=== PATIENT | female | born 2005 ===

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

== ENCOUNTER 2025-01-08 | Outpatient (REF) | payer MEDICAID, SELFPAY ==
[2025-01-09 13:49] LABS: Bacterial Vaginosis PCR NEGATIVE (Negative); Candida Group PCR NOT DETECTED (Not Detect); Candida glab krusei PCR NOT DETECTED (Not Detect); Trichomonas vaginalis PCR NOT DETECTED (Not Detect)
[2025-01-09 14:19] LABS: CT PCR NOT DETECTED (Not Detect.); NG PCR NOT DETECTED (Not Detect.)
--- OUTSIDE RECORDS SUMMARY | 2025-01-09 14:54 | XMS_ITS | Encounter Summary ---
Author Organization [employer] Address [address] [facility] 7 [place] [address] Care Team Providers Care Farm Loan Representative Name Role Phone Elizabeth Trejo DO Primary Care Provider [phone] Reason for Visit * Reason Onset Date Comments Medication Question 11/12/2024 Encounter Details Date Type Department Care Team ([facility] st Contact Info) Description 11/12/2024 Telephone [facility] [address] [place] [address] Elizabeth Trejo DO [address] [place], [place] [phone] Medication Question Social History Tobacco Use Types [...] encounter Miscellaneous Notes * Telephone Encounter - aRdha Bernardo CNM - 11/12/2024 2:07 PM EST [facility] message sent to patient. * Telephone Encounter [...] documented as of this encounter Care Teams Farm Loan Representative Relationship Specialty Start Date End Date Elizabeth Trejo DO [address] [place] [address] PCP - General Family Medicine 09/23/24 documented as of this encounter
--- OUTSIDE RECORDS SUMMARY | 2025-01-09 14:54 | XMS_ITS | Encounter Summary ---
Author Organization [employer] Address [address] [place] [address] 7 [place] [address] Care Team Providers Care Traffic Coordinator Name Role Phone Malka Dee MD Primary Care Provider [phone] Danuta Barnard MD Primary Care Provide r Elizabeth Trejo DO Primary Care Provider [phone] Reason for Visit * Reason Onset Date Comments Med Refill 02/07/2024 Encounter Details Date Type Department Care Team (Late st Contact Info) Description 02/07/2024 Refill [facility] [address] [place], [place] [phone] Malka Dee MD [address] [place], [place] [phone] Social History Tobacco Use Types Packs/Day Years [...] on filedocumented in this encounter Care Teams Traffic Coordinator Relationship Specialty Start Date End Date Malka Dee MD [address] [place] [address] PCP - General Pediatrics 10/30/18 09/11/24 Danuta Barnard MD [address] [place] [address] PCP - General Internal Medicine 09/12/24 09/22/24 Elizabeth Trejo DO [address] [place] [address] PCP - General Family Medicine 09/23/24 documented as of this encounter
--- OUTSIDE RECORDS SUMMARY | 2025-01-09 14:54 | XMS_ITS | Encounter Summary ---
Author Organization [employer] Address [address] [facility] 7 [place] [address] Care Team Providers Care Funeral Car Chauffeur Name Role Phone Elizabeth Trejo DO Primary Care Provider [phone] Reason for Visit * Reason Onset Date Comments Nurse Triage 01/01/2025 Encounter Details Date Type Department Care Team (Late st Contact Info) Description 01/01/2025 Telephone [facility] [address] [place] [address] Elizabeth Trejo DO [address] [place], [place] [phone] Nurse Triage Social History Tobacco Use Types [...] Telephone Encounter - Meenu Jules RN - 01/01/2025 4:32 PM EST Images from the original note were not included. Call returned to [facility] to triage below. Reports having SE of nausea since starting BC Ocp. Pt reports having worsening depression symptoms. Pt denies any SI/HI. Pt reports feeling safe in home. Pt confirms having services with our [facility] team. Pt states does not believe wants to usealt method (iUD, Implanon or DEPO). Pt advised can stop BC but if wishes to prevent should use alt method of male/female condoms, abstinence or pull out method. Pt states would like PCP follow up. Given appt on Monday for follow up. Reviewed [facility] operating hours and that wait times vary. Reviewed home care advise, ER precautions and reasons to call back. Multiple (2) protocols were used on this call. Disposition for Call: Callback or Video Visit by PCP Today Future Appointments Date Time Provider Department Center 01/06/2025 10:00 AM Pérez Ruggiero [facility] 01/06/2025 11:45 AM DO [facility] Insurance verified as active per Real Time Eligibility in [facility]. Protocol Used: Nausea (Adult) Protocol-Based Disposition: Callback or Video Visit by PCP Today Video visit offer not recorded Positive Triage Question: * Taking prescription medication that could cause nausea (e.g., narcotics/opiates, antibiotics, OCPs, many others) * All higher-acuity triage questions were negative Care Advice Discussed: * Reassurance and Education - Nausea * Clear Fluids * Solid Foods * Reasons To Call Back - Nausea lasts over 1 week - You become worse Protocol Used: Contraception - Control Pills - Combined (Adult) Protocol-Based Disposition: See in Office or Video Visit within 3 Days Video visit offer not recorded Positive Triage Question: * Patient wants to be seen * All higher-acuity triage questions were negative Care Advice Discussed: * Combined Control Pills (BCPs) - Side Effects * Reasons To Call Back - You become worse FW: control Received: Today Meenu Jules RN P [facility] T[facility] Nurse Previous Messages control (Newest Message First) View All Conversations on this Encounter You routed conversation to [facility] Triage Nurse52 minutes ago (3:37 PM) Tosha Mason [facility] Clinical Support (supporting Radha Bernardo CNM)2 hours ago (1:51 PM) YV I???m Tosha Carreon I would like to stop my control pill. It???s been a month and a half Gomez feel nauseous every single day. I did take a test to make sure I???m not and it came out negative. I also feel depressed everyday and it???s making it worse. I did try the patch before and it didn???t work either. I would like to stop control altogether. Is it possible for me to stop it today? documented in this encounter Plan of Treatment Not on file documented as of this encounter Visit Diagnoses Not on filedocumented in this encounter Additional Health Concerns Assessment Noted Time PHQ-9 Depression Total Score: 18 024 11:41 AM EST documented as of this encounter Care Teams Funeral Car Chauffeur Relationship Specialty Start Date End Date Elizabeth Trejo DO [address] [place] [address] PCP - General Family Medicine 09/23/24 documented as of this encounter
--- OUTSIDE RECORDS SUMMARY | 2025-01-09 14:54 | XMS_ITS | Clinical Summary ---
Author Organization [employer] Address [address] [facility] 7 [place] [address] Care Team Providers Care Order Takers Supervisor Name Role Phone Elizabeth Trejo DO Primary Care Provider + [phone] Allergies No known active allergies Medications * This document contains information received from the source organization and may not represent a complete record from that organization. hydrOXYzine pamoate (Vistaril) 25 MG capsule Take 1 capsule (25 mg) by mouth every 6 (six) hours if needed for anxiety for up to 10 days. 30 capsule 09/23/2024 Active norgestimate-et hinyl estradiol (Ortho Tri-Cyclen,Kristin essa) 0.18/0.215/0.25 MG-35 MCG tablet Take 1 tablet by mouth Once per day. 28 tablet 11 11/25/2024 Active Active Problems Problem Noted Date Diagnosed Date Anxiety 12/10/2024 Vaginal symptom 12/09/2024 Depressive disorder 11/30/2023 11/30/2023 Assessment & Plan (12/10/2024 8:03 AM EST): >>ASSESSMENT AND PLAN FOR PERSISTENT DEPRESSIVE DISORDER WRITTEN ON 09/24/2024 1:38 PM BY ELSY CANTRELL During IB Consult Tosha presenting with depressed mood, Tearful, crying spells [...] using open-ended questions. Pt was self-referred to [facility]. She completed the intake forms after today's appt and will be giving an appt within the next two days. clinician will provide additional support if needed during next medical appointments. Encounters * This document contains information received from the source organization and may not represent a complete record from that organization. Date Type Department Care Team Description 01/08/2025 7:20 PM EDT Office Visit [facility] [address] [address] Jocelyne Alfaro FNP Vaginosis (Primary Dx); UTI symptoms 01/08/2025 Travel 01/01/[address] [address] Elizabeth Trejo DO Nurse Triage 12/09/2024 2:45 PM EST Office Visit [address] [address] Charlotte Herrera MD Vaginal symptom (Primary Dx); Persistent depressive disorder 12/09/2024 Travel 12/09/[address] [address] Elizabeth Trejo DO Nurse Triage 12/04/2024 6:00 PM EST Office Visit [facility] [address] [phone] Trixie Hagan FNP Vaginal symptom (Primary Dx) 12/04/[address] [address] Elizabeth Trejo DO Nurse Triage 11/25/2024 10:00 AM EST Office [address] [place] [address] Radha Bernardo CNM Hair loss (Primary Dx); Family planning counseling 11/25/2024 Travel 11/12/[address] [address] Elizabeth Trejo DO Medication Question 11/12/2024 Orders Only [address] [address] Radha Bernardo CNM 11/11/2024 1:45 PM EST Office Visit [address] [address] Radha Bernardo CNM Candidiasis of vulva and vagina (Primary Dx) 11/11/2024 Travel 11/07/[address] [address] Elizabeth Trejo DO Nurse Triage 10/25/[address] [address] Elizabeth Trejo DO Nurse Triage from Last 3 Months Immunizations [...] Sign Reading Time Taken Comments Blood Pressure 120/76 01/08/2025 7:17 PM EDT Pulse 102 01/08/2025 7:17 PM EDT Temperature 36 ??C (96.8 ??F) 12/09/2024 2:25 PM EST Respiratory Rate 20 01/08/2025 7:17 PM EDT Oxygen Saturation 100% 01/08/2025 7:17 PM EDT Inhaled Oxygen Concentration - - Weight 59.8 kg (131 lb 12.8 oz) 01/08/2025 7:17 PM EDT Height 161.3 cm (5' 3.5 ) 01/08/2025 7:17 PM EDT Body Mass Index 22.98 01/08/2025 7:17 PM EDT Plan of Treatment Health Maintenance Due Date Last Done Comments HIV Screening 2005 Fluoride Varnish 02/26/2006 Alcohol/Substance Use Screening 2017 Hepatitis C Screening 2023 COVID-19 Vaccine ( season) 2024 Influenza Vaccine (#1) 2024 Depression Monitoring (PHQ-9) 03/23/2025 09/23/2024, 09/23/2024 Depression Screening 09/23/2025 09/23/2024, 09/23/20 24 SDOH Screening 09/23/2025 09/23/2024 Family Planning (PISQ) 11/25/2025 11/25/2024 Tobacco Screening 12/09/2025 12/09/2024 Chlamydia and Gonorrhea Screening 01/08/2026 01/08/2025, 12/09/2024, 12/04/2024, Additional history exists DTaP/Tdap/Td Vaccines (7 - Td or Tdap) [...] Procedure Name Priority Date/Time Associated Diagnosis Comments CHLAMYDIA/N. GONORRHOEAE RNA, TMA, UROGENITAL Routine 01/08/2025 7:52 PM EDT Vaginosis BACTERIAL VAGINOSIS PANEL Routine 01/08/2025 7:52 PM EDT Vaginosis POCT URINALYSIS DIPSTICK Routine 01/08/2025 7:25 PM EDT UTI symptoms CHLAMYDIA/N. GONORRHOEAE RNA, TMA, UROGENITAL Routine 12/09/2024 3:55 PM EST Vaginal symptom BACTERIAL VAGINOSIS PANEL Routine 12/09/2024 3:55 PM EST Vaginal symptom POCT URINALYSIS DIPSTICK Routine 12/09/2024 2:52 PM [...] vagina from Last 3 Months Results * Bacterial Vaginosis Panel (01/08/2025 7:52 PM EDT) Only the most recent of4 resultswithin the time period is included. TRICHOMONAS VAGINALIS DETECTION BY PCR NOT DETECTED Not Detect [facility] BACTERIAL VAGINOSIS DETECTION BY PCR NEGATIVE Negative [facility] Comment:The BV organism targ ets [...] DETECTION BY PCR NOT DETECTED Not Detect [facility] Karin glab krusei PCR NOT DETECTED Not Detect [facility] Swab Vaginal structure / Unknown 01/08/2025 7:52 PM EDT 01/09/2025 11:32 AM EDT Jocelyne Alfaro [facility] MICROBIOLOGY - GENERAL MARLO PRADO Final Result [facility] [address] [place] [address] [phone] * Chlamydia/N. Gonorrhoeae RNA, TMA, Urogenitial (01/08/2025 7:52 PM EDT) Only the most recent of3 resultswithin the time period is included. CT PCR NOT DETECTED Not Detect. [facility] Comment:A not detected test result [...] psychologicalconsequences. NG PCR NOT DETECTED Not Detect. [facility] Comment:A not detected test result [...] to adverse medical, social or psychologicalconsequences. Swab Vaginal structure / Unknown 01/08/2025 7:52 PM EDT 01/09/2025 11:32 AM EDT Narrative [facility] - 01/09/2025 2:19 PM EDT Vaginal us Jocelyne [facility] MICROBIOLOGY - GENERAL MARLO PRADO Final Result [facility] [address] [place] [phone] * POCT Urinalysis (01/08/2025 7:25 PM EDT) Only the most recent of3 resultswithin the time period is included. Color, UA Yellow Clarity, UA Clear Glucose, UA Negative Bilirubin, UA Negative Ketones, UA Positive Comment:Trace Spec Grav, UA 1.025 Blood, UA Negative Negative, None Detected pH, UA 7.5 Protein, UA Negative Urobilinogen, UA 1.0 Leukocytes, UA Negative Negative, Rare, Trace Nitrite, UA Negative Negative, None Detected Appearance, UA yellow QC Media Lot # [id number] Lot# Expiration Date Urine 01/08/2025 7:25 PM EDT Jocelyne Alfaro [facility] POINT OF CARE TEST ENTER/EDIT O RDERABLES Final Result * POCT Urine (12/04/2024 6:48 PM EST) Preg Test, Ur Negative Negative, Indeterminate, None Detected, Invalid, Specimen unsatisfactory for evaluation, Weakly Positive QC Media Lot # [id number] Lot# Expiration Date , Urine 12/04/2024 6:48 PM EST Trixie Yiselsergio [facility] POINT OF CARE TEST ENTER/EDIT ORDERABLES Final Result * POCT fern test, vaginal fluid manually resulted (11/11/2024 2:11 PM EST) [facility] Prep Positive Comment:pH 4.5, pos hyphae, neg trich, neg clue, neg wbc, neg whiff Vaginal Fluid Vaginal structure / Unknown 11/11/2024 2:11 PM EST Impressions Radha Bernardo CNM - 11/11/2024 2:11 PM EST Vulvovaginal candidiasis Radha Bernardo [facility] POINT OF CARE TEST ENTER/ EDIT ORDERABLES Final Result from Last 3 Months Insurance [facility] C3 Care Teams Order Takers Supervisor Relationship Specialty Start Date End Date Elizabeth Trejo DO [address] [place] [address] PCP - General Family Medicine 09/23/24
--- OUTSIDE RECORDS SUMMARY | 2025-01-09 14:54 | XMS_ITS | Encounter Summary ---
Author Organization [employer] Address [address] [facility] 7t [place] [address] Care Team Providers Care Scientific Director Name Role Phone Malka Dee MD Primary Care Provider [phone] Danuta Barnard MD Primary Care Provide r Elizabeth Trejo DO Primary Care Provider [phone] Reason for Visit * Reason Onset Date Comments Appointment Request 11/14/2023 Encounter Details Date Type Department Care Team (Late st Contact Info) Description 11/14/2023 Telephone [facility] [address] [place], [place] [phone] Malka Dee MD [address] [place], [place] [phone] Appointment Request Social History Tobacco Use Types Packs/Day Years Used Date Smoking Tobacco: Never Assessed Comments Unknown Sex and Gender Information Value Date Recorded Sex Assigned at Female 08/29/2022 10:33 AM EDT Legal Sex Female 10:33 AM EDT Gender Identity Female 11/30/2023 11:11 AM EST Sexual Orientation Straight 11/08/2024 8: 55 AM EST documented as of this encounter Miscellaneous Notes * Telephone Encounter - Katrin Santos RN - 11/14/2023 2:38 PM EST T/C to pt. Through [employer] id - [id number] for below message, Pt. Schedule for follow up apt. For referral for PAP smear and information about control. Pt. Verbally agreed and understood. * Telephone Encounter - Mckenna Cooney - 11/14/2023 11:52 AM EST Tc from mom requesting a referral for PAP Smear and information about control. documented in this encounter Plan of Treatment Not on file documented as of this encounter Visit Diagnoses Not on filedocumented in this encounter Care Teams Scientific Director Relationship Specialty Start Date End Date Malka Dee MD [address] [place] [phone] PCP - General Pediatrics 10/30/18 09/11/24 Danuta Barnard MD [address] [place] [phone] PCP - General Internal Medicine 09/12/24 09/22/24 Elizabeth Trejo DO [address] [place] [phone] PCP - General Family Medicine 09/23/24 documented as of this encounter
--- OUTSIDE RECORDS SUMMARY | 2025-01-09 14:54 | XMS_ITS | Encounter Summary ---
Author Organization [employer] Address [address] [facility] [address] 7[address] [place] [address] Care Team Providers Care Battery Vent Plug Inserter Name Role Phone Elizabeth Trejo DO Primary Care Provider [phone] Encounter Details Date Type Department Care Team (Latest Contact Info) Description 01/08/2025 Travel Social History Tobacco Use Types Packs/Day [...] documented as of this encounter Care Teams Battery Vent Plug Inserter Relationship Specialty Start Date End Date Elizabeth Trejo DO [address] [place] [phone] PCP - General Family Medicine 09/23/24 documented as of this encounter
--- OUTSIDE RECORDS SUMMARY | 2025-01-09 14:54 | XMS_ITS | Encounter Summary ---
Author Organization [employer] Address [address] [facility] 7t [place] [address] Care Team Providers Care Bindery Manager Name Role Phone GailElizabeth beasley Primary Care Provider [phone] Reason for Visit * Reason Comments Walk-In STI symptoms 2 days; pt did try using an itching cream and feels like it agitated her skin, only inside is itchy at the moment Encounter Details Date Type Department Care Team (Late st Contact Info) Description 01/08/2025 7:20 PM EDT Office Visit [facility] [address] [place], [place] [phone] Jocelyne Alfaro FNP [address] [place] [address] Vaginosis (Primary Dx); UTI symptoms Social History Tobacco Use Types Packs/Day Years [...] Pulse 102 01/08/2025 7:17 PM EDT Temperature - - Respiratory Rate 20 01/08/2025 7:17 PM EDT Oxygen Saturation 100% 01/08/2025 7:17 PM EDT Inhaled Oxygen Concentration - - Weight 59.8 kg (131 lb 12.8 oz) 01/08/2025 7:17 PM EDT Height 161.3 cm (5' 3.5 ) 01/08/2025 7:17 PM EDT Body Mass Index 22.98 01/08/2025 7:17 PM EDT documented in this encounter Progress Notes * SHAYLEE Day - 01/08/2025 7:20 PM EDT Subjective Patient ID: Tosha Ingram is a 19 y.o. female who presents for Walk-In (STI symptoms 2 days). Tosha here today with concerns of recurrent vaginal infections. She reports 2 days of malodorous vaginal discharge, yellow in color, itching and vaginal irritation. She used an OTC cream (unable to recall name) which helped with the itch but discharge continues. She was previously treated for BV in 11/11 24 with metrogel with resolution of symptoms after completion of medication. 12/04/2024 she was seen in [facility] for vaginal itching and mild discharge. BV, trichomonas, nazario, chlamydia and gonorrhea were negative at that time. 12/09/2024 was seen for itching, burning with urination and irritation after intercourse with her boyfriend x 1 week. Yarisbeth denies dyspareunia, bleeding with sex or bleeding in between periods. Denies urinary frequency, fever, nausea, vomiting, or CVA tenderness. No new partner, she is in a mutually exclusive relationship. Vaginal Discharge Quality: Malodorous and yellow Onset quality: Sudden Duration: 2 days Progression: Worsening Associated symptoms: vaginal itching Associated symptoms: no abdominal pain, no fever, no nausea, no rash, no urinary incontinence and no vomiting Risk factors: no new sexual partner Review of Systems Constitutional: Negative for appetite change, fatigue and fever. HENT: Negative for ear pain, rhinorrhea and sore throat. Eyes: Negative for discharge. Respiratory: Negative for cough and shortness of breath. Cardiovascular: Negative for chest pain. Gastrointestinal: Negative for abdominal pain, constipation, diarrhea, nausea and vomiting. Genitourinary: Positive for vaginal discharge. Negative for bladder incontinence and difficulty urinating. Musculoskeletal: Negative for arthralgias and myalgias. Skin: Negative for rash and wound. Neurological: Negative for headaches. Hematological: Negative for adenopathy. Objective BP 120/76 (BP Location: Left arm, Patient Position: Sitting, BP Cuff Size: Adult) Pulse 102 Resp 20 Ht 5' 3.5 (1.613 m) Wt 131 lb 12.8 oz (59.8 kg) SpO2 100% BMI 22.98 kg/m?? Physical Exam Constitutional: Appearance: Normal appearance. HENT: Head: Normocephalic. Right Ear: External ear normal. Left Ear: External ear normal. Nose: Nose normal. Mouth/Throat: Mouth: Mucous membranes are moist. Eyes: Conjunctiva/sclera: Conjunctivae normal. Cardiovascular: Rate and Rhythm: Normal rate and regular rhythm. Heart sounds: Normal heart sounds. Pulmonary: Effort: Pulmonary effort is normal. Breath sounds: Normal breath sounds. Musculoskeletal: General: Normal range of motion. Cervical back: Normal range of motion and neck supple. Skin: General: Skin is warm and dry. Capillary Refill: Capillary refill takes less than 2 seconds. Neurological: Mental Status: She is alert and oriented to person, place, and time. Psychiatric: Mood and Affect: Mood normal. Behavior: Behavior normal. Thought Content: Thought content normal. Judgment: Judgment normal. Assessment/Plan Diagnoses and all orders for this visit: Vaginosis Vaginal hygiene reviewed. Avoid scented/perfumed products. Wash vulva with water only BV panel and STI testing pending Plan based on results RTC if sx persist or worsen Refer to for pelvic exam due to recurrent infections - Bacterial Vaginosis Panel - Chlamydia/N. Gonorrhoeae RNA, TMA, Urogenitial UTI symptoms - POCT Urinalysis Urine analysis and culture Urine sample with trace ketones, no leuk or nitrites Increase fluids RTC if sx worsen or persist documented in this encounter Plan of Treatment Not on file documented as of this encounter Procedures Procedure Name Priority Date/Time Associated Diagnosis Comments BACTERIAL VAGINOSIS PANEL Routine 01/08/2025 7:52 PM EDT Vaginosis CHLAMYDIA/N. GONORRHOEAE RNA, TMA, UROGENITAL Routine 01/08/2025 7:52 PM EDT Vaginosis POCT URINALYSIS DIPSTICK Routine 01/08/2025 7:25 PM EDT UTI symptoms documented in this encounter Results * Chlamydia/N. Gonorrhoeae RNA, TMA, Urogenitial (01/08/2025 7:52 PM EDT) CT PCR NOT DETECTED Not Detect. [facility] Comment:A not detected test result does [...] psychologicalconsequences. NG PCR NOT DETECTED Not Detect. [facility] Comment:A not detected test result does [...] PM EDT 01/09/2025 11:32 AM EDT Narrative [facility] - 01/09/2025 2:19 PM EDT Vaginal Jocelyne JUNE LAB MICROBIOLOGY - GENERAL MARLO PRADO Final Result [facility] [address] [place] [phone] * Bacterial Vaginosis Panel (01/08/2025 7:52 PM EDT) TRICHOMONAS VAGINALIS DETECTION BY PCR NOT DETECTED Not Detect [facility] BACTERIAL VAGINOSIS DETECTION BY PCR NEGATIVE Negative [facility] Comment:The BV organism targ ets [...] evaluatedin patients under the age of 14. NAZARIO GROUP DETECTION BY PCR NOT DETECTED Not Detect [facility] Nazario glab krusei PCR NOT DETECTED Not Detect [facility] Swab Vaginal structure / Unknown 01/08/2025 7:52 PM EDT 01/09/2025 11:32 AM EDT [facility] Final Result [facility] [address] [place] [phone] * POCT Urinalysis (01/08/2025 7:25 PM EDT) Color, UA Yellow Clarity, UA Clear Glucose, UA Negative Bilirubin, UA Negative Ketones, UA Positive Comment:Trace Spec Grav, UA 1.025 Blood, UA Negative Negative, None Detected pH, UA 7.5 Protein, UA Negative Urobilinogen, UA 1.0 Leukocytes, UA Negative Negative, Rare, Trace Nitrite, UA Negative Negative, None Detected Appearance, UA yellow QC Media Lot # [id number] Lot# Expiration Date Urine 01/08/2025 7:25 PM EDT [employer] INCIDENT MANAGER POINT OF CARE TEST ENTER/EDIT O RDERABLES Final Result documented in this encounter Visit Diagnoses Diagnosis Vaginosis- Primary UTI symptoms documented in this encounter Additional Health Concerns Assessment Noted Time PHQ-9 Depression Total Score: 18 024 11:41 AM EST documented as of this encounter Care Teams Bindery Manager Relationship Specialty Start Date End Date Elizabeth Trejo DO [address] [place] [phone] PCP - General Family Medicine 09/23/24 documented as of this encounter
== END 2025-01-08 00:01 | disposition home or self-care (01) ==
LOC: HO.HHCLNP
PROVIDERS: Visit Provider Nurse Practitioner Family
DX: N76.0 Acute vaginitis (principal)
CPT/HCPCS: 81515; 87491; 87591

== ENCOUNTER 2025-02-14 12:19 | Emergency (ER) | payer OTHER, MEDICAID, SELFPAY ==
--- NOTE | ~2025-02-14 | CT_ITS ---
EXAMINATION: CT HEAD WITHOUT CONTRAST CLINICAL INFORMATION: Posterior head strike, dizziness COMPARISON: None available. TECHNIQUE: Contiguous axial imaging was performed from the skull base to vertex without intravenous administration of contrast. This CT examination was performed using dose optimization techniques as appropriate, variously including the following: *Automated exposure control *Adjustment of mA and/or kV according to patient size (this includes techniques or standardized protocols for targeted exams where dose is matched to indication/reason for exam; i.e. extremities or head) *Use of iterative reconstruction technique DLP: 669.88 mGy-cm FINDINGS: The bony calvarium is intact. No acute intracranial hemorrhage, mass effect, midline shift, hydrocephalus or herniation. [place]-white matter differentiation is normal. Sellar/suprasellar region demonstrated no gross masses. Craniocervical junction is intact and normal. No air-fluid levels in the included paranasal sinuses. Tympanic cavities and mastoid cells are aerated. Pneumatized left petrous apex. CT/CT head/brain wo IV con IMPRESSION: No acute fracture, bony calvarium. No acute intracranial hemorrhage. Electronically signed by: Kvng Manjarrez MD 02/14/2025 02:29 PM EDT
--- NOTE | ~2025-02-14 | CT_ITS ---
EXAMINATION: CT CERVICAL SPINE WITHOUT CONTRAST CLINICAL INFORMATION: Head injury. COMPARISON: None available. TECHNIQUE: Contiguous axial images through the cervical spine using 3 mm collimation with bone and soft tissue algorithm. Sagittal and coronal reformatted images acquired. This CT examination was performed using dose optimization techniques as appropriate, variously including the following: *Automated exposure control *Adjustment of mA and/or kV according to patient size (this includes techniques or standardized protocols for targeted exams where dose is matched to indication/reason for exam; i.e. extremities or head) *Use of iterative reconstruction technique DLP: 295.08 mGy centimeter. FINDINGS: Craniocervical junction is intact. No gross malalignment between the vertebral bodies or the facet joints. C1 is intact. C2 is intact. C3 is intact. C4 is intact. C5 is intact. C6 is intact. C7 is intact. No gross prevertebral compartment hematoma. Tympanic cavities and mastoid cells are aerated. CT/CT cervical spine wo IV con IMPRESSION: No acute fracture or trauma-related listhesis. Fleischner guidelines were followed. Electronically signed by: Kvng Manjarrez MD 02/14/2025 02:26 PM EDT
[2025-02-14 12:23] VITALS: BP 138/87; PULSE 123; RESP 18; TEMP 37.1; O2SAT 100; BMI 22.4
--- NOTE | 2025-02-14 12:25 | ED_ITS ---
HPI - Head Injury General Chief complaint: Head Injury Stated complaint: Hit Head 3 Days Ago Nausea Headache Etc Time Seen by Provider: 02/14/25 13:12 Source: patient Mode of arrival: ambulatory Limitations: no limitations History of Present Illness ED Provider: Malgorzata Tirado NP HPI Narrative: Patient is a 19-year-old female who presents emergency department for evaluation after sustaining a head injury at work; [email or web address] on 02/10/2025. She states that she was underneath a rack she stood upwards and struck the back of her head into the rack. She denies loss of consciousness, use of anticoagulants or known coagulation disorders. She does not having any pain initially. The following day she began experiencing a posterior headache, photophobia and phonophobia, nausea but no vomiting, intermittent dizziness, diffuse posterior neck pain as well. She has not taken any at home. Given her persistent symptoms she decided to seek evaluation today. Denies vision changes, neck stiffness, chest pain, shortness of breath, numbness or tingling of the extremities, bladder bowel dysfunction. Related Data Previous Rx's ?Medication ?Instructions ?Recorded norgestimate 0.18 mg/0.215mg/0.25 1 tab PO DAILY #84 tabs 05/07/24 mg-ethinyl estradiol 0.025 mg tablet Allergies Allergy/AdvReac Type Severity Reaction Status Date / Time No Known Allergies Allergy Verified 02/14/25 12:25 [No Known Allergies*] Review of Systems Review of Systems: Yes all other systems are reviewed and are negative PMFSH Past Medical History Attestation statement: The following information was validated with the patient. Source: old records reviewed Social History Social History Advance Directives: No Advance Directives Information Provided: No Do you have a plan to hurt others: No Plan Physical Exam Vital Signs: Vital Signs: Last Vital Signs Temp 98.7 F 02/14/25 12:23 Pulse 123 H 02/14/25 12:23 Resp 18 02/14/25 12:23 BP 138/87 02/14/25 12:23 Pulse Ox 100 02/14/25 12:23 O2 Del Method Room Air 02/14/25 12:23 BMI result Body Mass Index 22.4 Appearance: Alert.?Oriented to person, place and time. No acute distress.?Normal affect. Head: Normocephalic Eyes: Pupils equal, round and reactive to light. EOMI. Conjunctiva and sclera normal? No Romero sign noted. No raccoon eyes noted ENT: No septal hematoma, nares patent bilaterally. External auditory canal normal tympanic membrane pearly jenkins and intact bilaterally. Dentition normal, no fractured teeth. No lesions or lacerations of oropharynx. Uvula midline. Moist mucous membranes. Neck: Normal inspection.? Neck supple.??No palpable tenderness, step-off, deformities. CVS: Heart sounds normal. Normal heart rate and rhythm.? Pulses normal.?? Respiratory: No respiratory distress.? Lung sounds clear to auscultation bilaterally?? Abdomen: Soft and non-tender. Normoactive bowel sounds. ?? Skin: Skin warm and dry.? Normal skin color.? Normal skin turgor.?? Extremities: No lower extremity edema.? Neuro: Moves all extremities spontaneously. Sensation intact bilaterally. CN II- XII intact. No focal neuro deficits. Ambulatory with steady gait. Course Course Course Narrative: This is a Rapid Medical Examination (RME) performed by Yahaira Webber PA-C in triage. Full HPI, ROS, assessment and treatment plan per primary provider in the Main ED. 02/14/25 1225 [place] Francois Hx: here w/ photophobia, nausea without vomiting, dizziness, headache, neck pain since head strike on metal 3 days ago while at work. states she was bending over to grab something, stood up abruptly and struck the back of her head on a metal shelf. the following day began experiencing the above symptoms. No sals-uss-ryjgtls medications at home. PE/vitals: Acting appropriately. Well-appearing. PERRLA. No significant midline spinous tenderness or step-off deformity. Full ROM intact to C-spine. Plan: imaging, hcg Medical Decision Making Medical Decision Making MDM Narrative: Patient is a 19-year-old female who presents emergency department for evaluation of symptoms following a head injury 4 days ago as per HPI. She has been experiencing headache, photophobia, phonophobia, nausea, intermittent dizziness, and neck pain. She has no focal neurological deficits at the time of my evaluation, no midline cervical spine tenderness, step-offs, deformities. Clinically I have a low suspicion for ICH, SDH, fracture, cervical spine fracture, subluxation. CT imaging of the head and neck were obtained prior to my assumption of care and is without acute pathology. Her symptoms at this time appear most consistent with a concussion. She has not tried any/OTC analgesia at home for this thus far. Recommended use of acetaminophen/ibuprofen, brain rest, strict return precautions were reviewed, advised outpatient follow-up with primary care doctor. She verbalized understanding of this. He is ambulatory with steady gait. Stable for discharge at this time. Differential Diagnosis Differential Diagnoses: The differential diagnosis associated with the presentation includes (See narrative above) Admission/Observation Consideration of admission/observation: Escalation of care including admission/observation considered (See narrative above) Lab Data MDM Lab Attestation statement: I reviewed the patient's lab results. Labs: Lab Results 02/14/25 Range/Units 13:00 Beta HCG, Quant < 2 mIU/mL Independent Interpretation I performed an independent interpretation of an: CT Scan (See narrative above) Radiology Impression Discussion of test interpretation with radiology: I have reviewed the radiologist's reading. Radiologist Impression: CT/CT head/brain wo IV con IMPRESSION: No acute fracture, bony calvarium. No acute intracranial hemorrhage. CT/CT cervical spine wo IV con IMPRESSION: No acute fracture or trauma-related listhesis. Fleischner guidelines were followed. External Record Review External record reviewed: Outpatient record Prescription Management I considered prescription management with: Pain Medication (See narrative above) Discharge Plan Discharge Clinical Impression: Concussion Patient Disposition: Home, Self-Care Instructions: Concussion (ED) Additional Instructions: Be sure to rest over the next few days. Stay well hydrated drinking at least 8 glasses of water daily. You can take ibuprofen 200 mg, 3 tablets (600mg) every 6-8 hours as needed for pain, in addition to Tylenol 500 mg, 2 tablets (1,000mg) every 4-6 hours as needed for pain, but not to exceed 3 doses daily (3,000mg).? Be sure to give have to your self time to rest, especially refrain from blue light admission such as from cell phone, television, computer as this may worsen your symptoms of headache and light sensitivity. Follow-up with your primary care doctor. Return with any new or worsening symptoms or concerns Prescriptions: No Action norgestimate-ethinyl estradiol 0.18/0.215/0.25 mg-25 mcg tablet 1 tab PO DAILY Qty: 84 0RF Rx Instructions: Take 1 tablet a day of the active pills and then 1 week off as directed Referrals: Physician,Unknown J [Primary Care Provider] - Print Language: Solomon Islander
--- OUTSIDE RECORDS SUMMARY | 2025-02-14 13:35 | XMS_ITS | Encounter Summary ---
Author Organization [employer] Address [address] [facility] 7 [place] [address] Care Team Providers Care Emission Specialist Name Role Phone Elizabeth Trejo DO Primary Care Provider [phone] Reason for Visit * Reason Onset Date Comments Medication Question 11/12/2024 Encounter Details Date Type Department Care Team ([facility] st Contact Info) Description 11/12/2024 Telephone [facility] [address] [place] [address] Elizabeth Trejo DO [address] [place], [place] [phone] Medication Question Social History Tobacco Use Types [...] Bernardo CNM - 11/12/2024 2:07 PM EST [employer] message sent to patient. * Telephone Encounter [...] documented as of this encounter Care Teams Emission Specialist Relationship Specialty Start Date End Date Elizabeth Trejo DO [address] [place] [address] PCP - General Family Medicine 09/23/24 documented as of this encounter
--- OUTSIDE RECORDS SUMMARY | 2025-02-14 13:35 | XMS_ITS | Clinical Summary ---
Author Organization [employer] Address [address] [facility] 7 [place] [address] Care Team Providers Care Outpatient Dietitian Name Role Phone Elizabeth Trejo DO Primary Care Provider [phone] Allergies No known active allergies Medications * [...] using open-ended questions. Pt was self-referred to [facility]. She completed the intake forms after today's appt and will be giving an appt within the next two days. clinician will provide additional support if needed during next medical appointments. Encounters * This document contains information received from the source organization and may not represent a complete record from that organization. Date Type Department Care Team Description 01/10/2025 Population Health Risk Score [facility] () Department [address] [place] [phone] Provider, Population Health Generic 01/08/2025 7:20 PM EDT Office Visit [facility] [address] [place] [phone] Jocelyne Alfaro FNP Vaginosis (Primary Dx); UTI symptoms 01/08/2025 Travel 01/01/2025 Telephone [facility] [address] [place] [phone] Elizabeth Trejo DO Nurse Triage 12/09/2024 2:45 PM EST Office Visit [facility] [address] [place] [phone] Charlotte Herrera MD Vaginal symptom (Primary Dx); Persistent depressive disorder 12/09/2024 Travel 12/09/[address] [address] Elizabeth Trejo DO Nurse Triage 12/04/2024 6:00 PM EST Office Visit [facility] [address] [place] [address] Trixie Hagan FNP Vaginal symptom (Primary Dx) 12/04/2024 Telephone [facility] [address] [place] [address] Elizabeth Trejo DO Nurse Triage 11/25/2024 10:00 AM EST Office Visit [facility] [address] [place] [address] Radha Bernardo CNM Hair loss (Primary Dx); Family planning counseling 11/25/2024 Travel from Last 3 Months Immunizations Name Administration [...] 2024 Influenza Vaccine (#1) 2024 Depression Monitoring 03/23/2025 09/23/2024, 024 Depression Screening 09/23/2025 09/23/2024, 09/23/20 24 SDOH [...] Routine 12/04/2024 6:13 PM EST Vaginal symptom from Last 3 Months Results * Bacterial Vaginosis Panel (01/08/2025 7:52 PM EDT) Only the most recent of3 resultswithin the time period is included. TRICHOMONAS VAGINALIS DETECTION BY PCR NOT DETECTED Not Detect [facility] BACTERIAL VAGINOSIS DETECTION BY PCR NEGATIVE Negative [facility] Comment:The BV organism targ ets [...] DETECTION BY PCR NOT DETECTED Not Detect [facility] Karin glab krusei PCR NOT DETECTED Not Detect [facility] Swab Vaginal structure / Unknown 01/08/2025 7:52 PM EDT 01/09/2025 11:32 AM EDT Jocelyne Angelina DIRECTOR OF VOCATIONAL TRAINING LAB MICROBIOLOGY - GENERAL MARLO PRADO Final Result [facility] [address] [place] [phone] [phone] * Chlamydia/N. Gonorrhoeae RNA, TMA, Urogenitial (01/08/2025 7:52 PM EDT) Only the most recent of3 resultswithin the time period is included. Pathologist [facility] CT PCR NOT DETECTED Not Detect. [facility] Comment:A not detected test result [...] psychologicalconsequences. NG PCR NOT DETECTED Not Detect. [facility] Comment:A not detected test result [...] PM EDT 01/09/2025 11:32 AM EDT Narrative [facility] - 01/09/2025 2:19 PM EDT [facility] Final Result [facility] [address] [place] [phone] * POCT Urinalysis (01/08/2025 7:25 PM [...] Media Lot # [id number] Lot# Expiration Date , Urine 01/08/2025 7:25 PM EDT [facility] POINT OF CARE TEST ENTER/EDIT O RDERABLES Final Result * POCT Urine (12/04/2024 6:48 PM EST) Preg Test, Ur Negative Negative, Indeterminate, None Detected, Invalid, Specimen unsatisfactory for evaluation, Weakly Positive QC Media Lot # [id number] Lot# Expiration Date [id number] Urine 12/04/2024 6:48 PM EST Trixie Hagan DIRECTOR OF VOCATIONAL TRAINING POINT OF CARE TEST ENTER/EDIT ORDERABLES Final Result from Last 3 Months Insurance [facility] C3 Care Teams Outpatient Dietitian Relationship Specialty Start Date End Date Elizabeth Trejo DO [address] [place] [phone] PCP - General Family Medicine 09/23/24
--- OUTSIDE RECORDS SUMMARY | 2025-02-14 13:35 | XMS_ITS | Encounter Summary ---
Author Organization [employer] Address [address] [facility] 7t [place] [address] Care Team Providers Care Usps Letter Carrier Name Role Phone Malka Dee MD Primary Care Provider Danuta Barnard MD Primary Care Provide r Elizabeth Trejo DO Primary Care Provider [phone] Reason for Visit * Reason Onset Date Comments Appointment Request 11/14/2023 Encounter Details Date Type Department Care Team (Late st Contact Info) Description 11/14/2023 Telephone [facility] [address] [place], [place] [phone] Malka Dee MD [address] [place], [place] [phone] Appointment Request Social History Tobacco Use Types [...] 2:38 PM EST T/C to pt. Through [employer] Transmission id - [id number] for below message, Pt. Schedule for follow [...] on filedocumented in this encounter Care Teams Usps Letter Carrier Relationship Specialty Start Date End Date Malka Dee MD [address] [place] [phone] PCP - General Pediatrics 10/30/18 09/11/24 Danuta Barnard MD [address] [place] [phone] PCP - General Internal Medicine 09/12/24 09/22/24 Elizabeth Trejo DO [address] [place] [phone] PCP - General Family Medicine 09/23/24 documented as of this encounter
--- OUTSIDE RECORDS SUMMARY | 2025-02-14 13:35 | XMS_ITS | Encounter Summary ---
Author Organization [employer] Address [address] [place] [address] 7 [place] [address] Care Team Providers Care Gravity Meter Operator Name Role Phone Malka Dee MD Primary Care Provider [phone] Danuta Barnard MD Primary Care Provide r Elizabeth Trejo DO Primary Care Provider [phone] Reason for Visit * Reason Onset Date Comments Med Refill 02/07/2024 Encounter Details Date Type Department Care Team (Late st Contact Info) Description 02/07/2024 Refill [facility] [address] [place], [place] [phone] Malka Dee MD [address] [place], [place] [phone] Social History Tobacco Use Types Packs/Day Years [...] on filedocumented in this encounter Care Teams Gravity Meter Operator Relationship Specialty Start Date End Date Malka Dee MD [address] [place] [address] PCP - General Pediatrics 10/30/18 09/11/24 Danuta Barnard MD [address] [place] [address] PCP - General Internal Medicine 09/12/24 09/22/24 Elizabeth Trejo DO [address] [place] [address] PCP - General Family Medicine 09/23/24 documented as of this encounter
[2025-02-14 13:37] LABS: HCG Quantitative < 2 mIU/mL
[2025-02-14 15:05] VITALS: BP 108/62; PULSE 71; RESP 12; TEMP 36.5; O2SAT 99
== END 2025-02-14 15:15 | disposition home or self-care (01) ==
PROVIDERS: Physician Assistant Medical; Emergency Provider Emergency Medicine Emergency Medical Services
DX: S06.0X0A Concussion without loss of consciousness, initial encounter (principal); R51.9 Headache, unspecified; M54.2 Cervicalgia; R10.2 Pelvic and perineal pain; X58.XXXA Exposure to other specified factors, initial encounter; Y93.9 Activity, unspecified; Y92.512 Supermarket, store or market as the place of occurrence of the external cause; Y99.8 Other external cause status
CPT/HCPCS: 36415; 70450; 72125; 84702; 99282; 99284

== ENCOUNTER → 2025-02-14 12:27 | Outpatient (BNV) | payer OTHER, SELFPAY | PROVIDERS: Visit Provider Radiology Diagnostic Radiology | DX: S09.90XA Unspecified injury of head, initial encounter (principal) | CPT/HCPCS: 70450; 72125 ==

== ENCOUNTER 2025-06-25 10:27 | Outpatient (REF) | payer MEDICAID, SELFPAY ==
--- OUTSIDE RECORDS SUMMARY | 2025-06-25 11:00 | XMS_ITS | Encounter Summary ---
Author Organization [employer] Address [address] [place] [address] [address] [place] [address] Care Team Providers Care Global Risk Management Director Name Role Phone GelyElizabeth gandhi Primary Care Provider + [phone] Reason for Visit * Reason Comments Immunizations Encounter Details Date Type Department Care Team (Latest Contact Info) Description 06/25/2025 11:00 AM EDT Clinical Support [facility] MED[facility]INE [address] [place] [address] Bharti Hilario RN [address] [place], [place] [phone] Encounter for immunization Social History Tobacco Use Types Packs/Day Years [...] AM EST documented as of this encounter Progress Notes * Bharti Hilario RN - 06/25/2025 11:00 AM EDT S: Pt. Here for nurse visit for MCV4 booster for school O: Menquafi 0.5mL administered IM into left deltoid A: Healthcare maintenance P: Pt. Had bloodwork done this morning to assess need for hep B booster as well. Will be contacted with results and scheduled for [place] prn documented in this encounter Plan of Treatment Upcoming Encounters Date Type Department Care Team (Late st Contact Info) Description 08/13/2025 10:00 AM EDT Office Visit [facility] OPTOMETRY [address] [place] [address] Eduardo, Aneta, OD [address] [facility] [place] [address] documented as of this encounter Visit Diagnoses Diagnosis Encounter for immunization documented in this encounter Additional Health Concerns Assessment Noted Time PHQ-9 Depression Total Score: 18 024 11:41 AM EST documented as of this encounter Care Teams Global Risk Management Director Relationship Specialty Start Date End Date Elizabeth Trejo DO [address] [place] [address] PCP - General Family Medicine 09/23/24 documented as of this encounter
--- OUTSIDE RECORDS SUMMARY | 2025-06-25 11:20 | XMS_ITS | Encounter Summary ---
Author Organization [employer] Address [address] [place] [address] [address] [place] [address] Care Team Providers Care Lieutenant General Name Role Phone Neil Elizabeth Primary Care Provider [phone] Encounter Details Date Type Department Care Team ([facility] st Contact Info) Description 02/20/2025 Orders Only [facility] [address] [place] [address] Provider, MD Dany Social History Tobacco Use Types Packs/Day Years [...] as of this encounter Plan of Treatment Upcoming Encounters Date Type Department Care Team (Late st Contact Info) Description 08/13/2025 10:00 AM EDT Office Visit [facility] OPTOMETRY [address] [place] [address] Eduardo, Aneta, OD [address] [place] [address] documented as of this encounter Procedures Procedure Name Priority Date/Time Associated Diagnosis Comments CT HEAD WO CONTRAST Routine 02/14/2025 12:[address] CERVICAL SPINE WO CONTRAST Routine 02/14/2025 12:10 PM EDT documented in this encounter Results * CT Head w/o Contrast (02/14/2025 12:18 PM EDT) Anatomical Region Laterality Modality Head, Neck Computed Tomogra phy us Historical Provider MD MOJICA CT PROCEDURES Final R esult * CT Cervical Spine w/o Contrast (02/14/2025 12:10 PM EDT) Anatomical Region Laterality Modality Spine, C-spine Computed Tomogra phy Historical Provider MD MOJICA CT PROCEDURES Final R esult documented in this encounter Visit Diagnoses Not on filedocumented in this encounter Additional Health Concerns Assessment Noted Time PHQ-9 Depression Total Score: 18 024 11:41 AM EST documented as of this encounter Care Teams Lieutenant General Relationship Specialty Start Date End Date Elizabeth Trejo DO [address] [place] [address] PCP - General Family Medicine 09/23/24 documented as of this encounter
--- OUTSIDE RECORDS SUMMARY | 2025-06-25 11:20 | XMS_ITS | Clinical Summary ---
Author Organization [employer] Address [address] [place] [address] 7[address] [place] [address] Care Team Providers Care Adjustment Examiner Name Role Phone Elizabeth Trejo DO Primary Care Provider [phone] Allergies No known active allergies Medications * [...] using open-ended questions. Pt was self-referred to [facility]. She completed the intake forms after today's appt and will be giving an appt within the next two days. clinician will provide additional support if needed during next medical appointments. Encounters Date Type Department Care Team Description 06/25/2025 11:00 AM EDT Clinical Support [facility] MEDICINE [address] [place] [address] Bharti Hilario RN Encounter for immunization 06/25/2025 Travel 06/19/2025 Travel 06/06/2025 Telephone [facility] MED[facility]INE [address] [place] [phone] Elizabeth Trejo DO Lab Orders from Last 3 Months Immunizations Immunization Administration Dates Next Due DTaP 06/29/2009, 6,01/03/2006,11/01,2005 HPV 9-Valent 04/18/2019,04/16/2018 Hep A, ped/adol, 2 dose 05/29/2009,07/21/2006 Hep B, Adolescent or Pediatric 01/03/2006,2005,2005 HiB, unspecified 10/16/2006,2005 Hib (PRP-T) 2005 IPV 06/29/2009, 6,2005,08/29 MMR 06/29/2009,07/21/2006 Meningococcal MCV4P ACYW-135 04/16/2018 Meningococcal Polysaccharide A,C,Y,W-135 TT Conjugate 06/25/2025 Pneumococcal Conjugate PCV 13 10/16/2006 ,04/14/2006,01/03/2006,11/01 Tdap 04/16/2018 Varicella 02/26/2010,07/21/2006 Social History Tobacco [...] Sign Reading Time Taken Comments Blood Pressure 103/72 02/19/2025 3:37 PM EDT Pulse 72 02/19/2025 3:37 PM EDT Temperature 36.4 C (97.5 F) 02/19/2025 3:37 PM EDT Respiratory Rate 18 02/19/2025 3:37 PM EDT Oxygen Saturation 99% 02/19/2025 3:37 PM EDT Inhaled Oxygen Concentration - - Weight 57.5 kg (126 lb 12.8 oz) 02/19/2025 3:37 PM EDT Height 161.3 cm (5' 3.5 ) 01/08/2025 7:17 PM EDT Body Mass Index 22.11 01/08/2025 7:17 PM EDT Plan of Treatment Upcoming Encounters Date Type Department Care Team ([facility] st Contact Info) Description 08/13/2025 10:00 AM EDT Office Visit [facility] OPTOMETRY [address] [place] [address] Eduardo, Aneta, OD [address] [place] [address] Health Maintenance Due Date Last Done Comments HIV Screening 2005 Fluoride Varnish 02/26/2006 Alcohol/Substance Use Screening 2017 Meningococcal B Vaccine (1 of 2 - Standard) 2021 Hepatitis C Screening 2023 COVID-19 Vaccine ( - season) 2024 Depression Monitoring 03/23/2025 09/23/2024, 024 Influenza Vaccine (#1) 2025 SDOH Screening 09/23/2025 09/23/2024 Family Planning (PISQ) 11/25/2025 11/25/2024 Chlamydia and Gonorrhea Screening 01/08/2026 01/08/2025, 12/09/2024, 12/04/2024, Additional history exists Disability Screening 01/08/2026 01/08/2025 Tobacco Screening 02/19/2026 02/19/2025 DTaP/Tdap/Td Vaccines (7 - Td or Tdap) 04/16/2028 04/16/2018, 06/29/2009, 10/16/2006, Additional history exists Zoster Vaccines (1 of 2) 2055 RSV Patients and Patients Aged 60 years or older (1 - 1-dose 75+ series) 2080 Hepatitis B Vaccines Completed 01/03/2006, 2005, 2005 HIB Vaccines Completed 10/16/2006, 12/2005, 2005 Pneumococcal Vaccine: Pediatrics (0 to 5 Years) and At-Risk Patients (6 to 49) Years Completed 10/16/2006, 04/14/2006, 01/03/2006, Additional history exists Hepatitis A Vaccines Completed 05/29/2009, 07/21/20 IPV Vaccines Completed 06/29/2009, 04/2006, 2005, Additional history exists MMR Vaccines Completed 06/29/2009, 07/21/2006 Varicella Vaccines Completed 02/26/2010, 07/21/2006 HPV Vaccines Completed 04/18/2019, 04/16/2018 Meningococcal Vaccine Aged Out 06/25/2025, 018 No longer eligible based on patient's age to complete this topic RSV under 20 months Aged Out No longe r eligible based on patient's age to complete this topic Rotavirus Vaccines Aged Out No longer eligible based on patient's age to complete this topic Procedures Procedure Name Priority Date/Time Associated Diagnosis Comments CHLAMYDIA/N. GONORRHOEAE RNA, TMA, UROGENITAL Routine 01/08/2025 7:52 PM EDT Vaginosis from Last 3 Months or Most Recently Relevant to Health Maintenance Results * Chlamydia/N. Gonorrhoeae RNA, TMA, Urogenitial (01/08/2025 7:52 PM EDT) CT PCR NOT DETECTED Not Detect. [facility] Comment:A not detected test result [...] psychologicalconsequences. NG PCR NOT DETECTED Not Detect. [facility] Comment:A not detected test result [...] PM EDT 01/09/2025 11:32 AM EDT Narrative [facility] - 01/09/2025 2:19 PM EDT Vaginal Jocelyne Alfaro TELEPHONE COLLECTOR LAB MICROBIOLOGY - GENERAL MARLO PRADO Final Result [facility] [address] [place] [address] [phone] from Last 3 Months or Most Recently Relevant to Health Maintenance Insurance [facility] Care Teams Adjustment Examiner Relationship Specialty Start Date End Date Elizabeth Trejo DO [address] [place] [phone] PCP - General Family Medicine 09/23/24
--- OUTSIDE RECORDS SUMMARY | 2025-06-25 11:20 | XMS_ITS | Encounter Summary ---
Author Organization [employer] Address [address] [place] [address] [address]t [place] [address] Care Team Providers Care Scissors Grinder Name Role Phone Malka Dee MD Primary Care Provider Danuta Barnard MD Primary Care Provide r Elizabeth Trejo DO Primary Care Provider [phone] Reason for Visit * Reason Onset Date Comments Med Refill 02/07/2024 Encounter Details Date Type Department Care Team (Late st Contact Info) Description 02/07/2024 Refill [facility] [address] [place] [address] Malka Dee MD [address] [place] [address] Social History Tobacco Use Types Packs/Day Years [...] [facility] [address] [place] [address] Aneta Clark OD [address] [place] [address] documented as of this encounter Visit Diagnoses Not on filedocumented in this encounter Care Teams Scissors Grinder Relationship Specialty Start Date End Date Malka Dee MD [address] [place], [place] [phone] PCP - General Pediatrics 10/30/18 09/11/24 Danuta Barnard MD [address] [place], [place] [phone] PCP - General Internal Medicine 09/12/24 09/22/24 Elizabeth Trejo DO [address] [place], [place] [phone] PCP - General Family Medicine 09/23/24 documented as of this encounter
--- OUTSIDE RECORDS SUMMARY | 2025-06-25 11:20 | XMS_ITS | Encounter Summary ---
Author Organization [employer] Address [address] [place] [address] [address] [place] [address] Care Team Providers Care Cloth Examiner Hand Name Role Phone Elizabeth Trejo DO Primary Care Provider [phone] Reason for Visit * Reason Onset Date Comments Nurse Triage 02/18/2025 Encounter Details Date Type Department Care Team ([facility] st Contact Info) Description 02/18/2025 Telephone [facility] MEDICINE [address] [place] [address] Elizabeth Trejo DO [address] [place], [place] [phone] Nurse Triage Social History Tobacco Use Types [...] encounter Miscellaneous Notes * Telephone Encounter - Jenn Dalton RN - 02/18/2025 4:18 PM EDT Called pt. She states that last week when she was working at job she hit her head on a metal rack on the back of her head. Pt. Did not lose consciousness. Pt states that evening she had a headache, nausea, and bright lights were bothering her. That evening pt. Riddle extremely tired and her neck started to hurt. The next day pt. Still had a headache and bright lights were bothering her. Pt. States on 02/14/25 she went to [facility] and was DX. With a concussion. Pt. Has been taking Tylenol and Ibuprofen with relief but pt. Was told to fu with PCP. Pt. Still has headaches on and off, back of neck pain and sensitivity to light. I advised for pt. To come into office for evaluation. Pt. Will come to walk in. I will send a request to Clinical coordinators to get [facility] note into chart from 02/14/25 EDvisit. Multiple (2) protocols were used on this call. Disposition for Call: See in Office or Video Visit Today Protocol Used: Head Injury (Adult) Protocol-Based Disposition: See in Office or Video Visit Today Video visit not offered Positive Triage Question: * Patient wants to be seen * All higher-acuity triage questions were negative Protocol Used: Concussion (mTBI) Less Than 14 Days Ago Follow-Up Call (Adult) Protocol-Based Disposition: See in Office or Video Visit Today- will go to walk in. Video visit not offered Positive Triage Questions: * Patient wants to be seen * Concussion symptoms staying SAME (not worse or better) and present > 3 days * All higher-acuity triage questions were negative Care Advice Discussed: * Reassurance and Education - Symptoms Staying the Same * Concussion - When to Seek Medical Attention * Telephone Encounter - Mary Jane Quintana - 02/18/2025 4:12 PM EDT Symptom: Head Injury Outcome: Schedule an urgent appointment (within 1 hour) or talk to a nurse or provider soon Reason: Getting worse The caller accepted this outcome. documented in this encounter Plan of Treatment Upcoming Encounters Date Type Department Care Team (Late st Contact Info) Description 08/13/2025 10:00 AM EDT Office Visit [facility] OPTOMETRY [address] [place] [address] Aneta Clark, OD [address] [place] [address] documented as of this encounter Visit Diagnoses Not on filedocumented in this encounter Additional Health Concerns Assessment Noted Time PHQ-9 Depression Total Score: 18 024 11:41 AM EST documented as of this encounter Care Teams Cloth Examiner Hand Relationship Specialty Start Date End Date Elizabeth Trejo DO [address] [place] [address] PCP - General Family Medicine 09/23/24 documented as of this encounter
--- OUTSIDE RECORDS SUMMARY | 2025-06-25 11:20 | XMS_ITS | Encounter Summary ---
Author Organization [employer] Address [address] [facility] [address]t [place] [address] Care Team Providers Care Principal Security Architect Name Role Phone Elizabeth Trejo DO Primary Care Provider [phone] Encounter Details Date Type Department Care Team (Latest Contact Info) Description 06/25/2025 Travel Social History Tobacco Use Types Packs/Day [...] Description 08/13/2025 10:00 AM EDT Office Visit [facility] OPTOMETRY [address] [place] [address] Eduardo, Aneta, OD [address] [place] [address] documented as of this encounter Visit Diagnoses Not on filedocumented in this encounter Additional Health Concerns Assessment Noted Time PHQ-9 Depression Total Score: 18 024 11:41 AM EST documented as of this encounter Care Teams Principal Security Architect Relationship Specialty Start Date End Date Elizabeth Trejo DO [address] [place] [address] PCP - General Family Medicine 09/23/24 documented as of this encounter
--- OUTSIDE RECORDS SUMMARY | 2025-06-25 11:20 | XMS_ITS | Encounter Summary ---
Author Organization [employer] Address [address] [place] [address] [address] [place] [address] Care Team Providers Care Stretching Machine Tender Frame Name Role Phone Malka Dee MD Primary Care Provider Danuta Barnard MD Primary Care Provide r Elizabeth Trejo DO Primary Care Provider [phone] Reason for Visit * Reason Onset Date Comments Appointment Request 11/14/2023 Encounter Details Date Type Department Care Team (Late st Contact Info) Description 11/14/2023 Telephone [facility] MEDICINE [address] [place], [place] [phone] Malka Dee MD [address] [place], [place] [phone] Appointment Request Social History Tobacco Use Types [...] 2:38 PM EST T/C to pt. Through [employer] id - [id number] for below message, Pt. Schedule for follow [...] Description 08/13/2025 10:00 AM EDT Office Visit [facility] OPTOMETRY [address] [place], [place] [phone] Aneta Clark, OD [address] [place] [address] documented as of this encounter Visit Diagnoses Not on filedocumented in this encounter Care Teams Stretching Machine Tender Frame Relationship Specialty Start Date End Date Malka Dee MD [address] [place] [address] PCP - General Pediatrics 10/30/18 09/11/24 Danuta Barnard MD [address] [place] [address] PCP - General Internal Medicine 09/12/24 09/22/24 Elizabeth Trejo DO [address] [place] [address] PCP - General Family Medicine 09/23/24 documented as of this encounter
[2025-06-25 12:20] LABS: HBS Num1 0.78 mIU/mL (0-7.99); ~Hepatitis B Surface Antibody NONREACTIVE (Nonreactive)
== END 2025-06-25 10:28 | disposition home or self-care (01) ==
LOC: HO.HHCL 10:27
PROVIDERS: Advanced Practice Midwife; PCP Family Medicine; Visit Provider Family Medicine
DX: Z00.00 Encounter for general adult medical examination without abnormal findings (principal); Z11.59 Encounter for screening for other viral diseases; L65.9 Nonscarring hair loss, unspecified
CPT/HCPCS: 36415; 84443; 86706